=== PATIENT | male | born 1985 | race Hispanic/Latino ===

== ENCOUNTER → 2023-09-16 | Outpatient (CLI) | payer BC ==
[2023-09-16 10:02] LABS: BASOPHILS # (AUTO) 0.03 K/uL (0.00-0.20); BASOPHILS % (AUTO) 0.4 % (0.0-5.0); EOSINOPHILS # (AUTO) 0.15 K/uL (0.00-0.70); EOSINOPHILS % (AUTO) 1.9 % (0.0-8.0); HEMATOCRIT 44.9 % (42-54); IMMATURE GRANULOCYTE ABSOLUTE 0.05 K/uL (0-1); LYMPHOCYTES # (AUTO) 2.7 K/uL (1.0-4.8); LYMPHOCYTES % (AUTO) 33.5 % (21.0-51.0); MEAN CORPUSCULAR HEMOGLOBIN 29.3 pg (27.0-33.0); MEAN CORPUSCULAR HGB CONC 32.7 g/dL (32.0-36.0); MEAN CORPUSCULAR VOLUME 89.4 fL (79-99); MONOCYTES # (AUTO) 0.5 K/uL (0.1-1.0); MONOCYTES % (AUTO) 5.7 % (3.0-13.0); NEUTROPHILS # (AUTO) 4.6 K/uL (1.8-7.7); NEUTROPHILS % (AUTO) 57.9 % (40.0-77.0); PLATELET COUNT (AUTO) 288 K/uL (130-400); RED BLOOD CELL COUNT(AUTO) 5.02 MIL/uL (4.50-6.20); RED CELL DISTRIBUTION WIDTH 12.7 % (11.0-15.5)
[2023-09-16 10:11] LABS: HEMOGLOBIN A1C 5.3 % (4.0-6.0)
[2023-09-16 10:18] LABS: % IRON SATURATION 21.9 % (30-44)
[2023-09-16 10:42] LABS: ALBUMIN 3.8 g/dL (3.5-5.0); BILIRUBIN,TOTAL 0.4 mg/dL (0.2-1.0); MAGNESIUM 1.8 mg/dL (1.80-2.40); POTASSIUM 3.7 mmol/L (3.5-5.1); T4 (THYROXINE) 8.3 ug/dL (4.7-13.3); THYROID STIMULATING HORMONE 2.45 uIU/mL (0.36-3.74); TOTAL PROTEIN, SERUM 7.8 g/dL (6.0-8.3)
== END | disposition home or self-care (01) ==
LOC: LAB 09:24
PROVIDERS: ATTEND Surgery
DX: M19.91 Primary osteoarthritis, unspecified site (principal); G47.33 Obstructive sleep apnea (adult) (pediatric); I10 Essential (primary) hypertension; E78.00 Pure hypercholesterolemia, unspecified; K21.9 Gastro-esophageal reflux disease without esophagitis
CPT/HCPCS: 36415; 71045; 80053; 80061; 82306; 82607; 82746; 83036; 83540; 83550; 83735; 84207; 84425; 84436; 84443; 84446; 84481; 84590; 84630; 85025; 93005

== ENCOUNTER 2024-01-19 15:00 | Inpatient (IN) | payer BC, OTHER ==
[2024-01-17 14:08] VITALS: BP 164/97; PULSE 70; RESP 18; TEMP 97.2
[2024-01-17 14:19] LABS: BASOPHILS # (AUTO) 0.03 K/uL (0.00-0.20); BASOPHILS % (AUTO) 0.4 % (0.0-5.0); EOSINOPHILS # (AUTO) 0.09 K/uL (0.00-0.70); EOSINOPHILS % (AUTO) 1.1 % (0.0-8.0); HEMATOCRIT 44.1 % (42-54); IMMATURE GRANULOCYTE ABSOLUTE 0.03 K/uL (0-1); LYMPHOCYTES # (AUTO) 2.9 K/uL (1.0-4.8); LYMPHOCYTES % (AUTO) 35.9 % (21.0-51.0); MEAN CORPUSCULAR HEMOGLOBIN 28.8 pg (27.0-33.0); MEAN CORPUSCULAR HGB CONC 32.7 g/dL (32.0-36.0); MEAN CORPUSCULAR VOLUME 88.2 fL (79-99); MONOCYTES # (AUTO) 0.4 K/uL (0.1-1.0); MONOCYTES % (AUTO) 5.3 % (3.0-13.0); NEUTROPHILS # (AUTO) 4.6 K/uL (1.8-7.7); NEUTROPHILS % (AUTO) 56.9 % (40.0-77.0); PLATELET COUNT (AUTO) 306 K/uL (130-400); WHITE BLOOD COUNT (AUTO) 8.1 K/uL (4.8-10.8)
[2024-01-17 14:32] LABS: INR 1.02 (0.85-1.15)
[2024-01-17 14:34] LABS: PARTIAL THROMBOPLASTIN TIME 32.1 SEC (26.3-35.5)
[2024-01-17 14:37] LABS: ALBUMIN 4.1 g/dL (3.5-5.0); BILIRUBIN,TOTAL 0.4 mg/dL (0.2-1.0); POTASSIUM 3.8 mmol/L (3.5-5.1); TOTAL PROTEIN, SERUM 8.3 g/dL (6.0-8.3)
[~2024-01-19] VITALS: Ht 180.3 cm; Wt 138.4 kg
[~2024-01-19 15:00] MED LIST: PANT40TA54 PO
[2024-01-20] VITALS (18 sets, daily range): BP systolic 119–165; BP diastolic 75–93; PULSE 62–80; RESP 16–20; TEMP 97.1–98.2; O2SAT 96–97
[2024-01-20] MEDS: ceFAZolin SODIUM 2 GM VIAL ONE (12:41)
[2024-01-20] MEDS: metRONIDazole 500MG/100ML BAG 200 ML ONE (12:48)
[2024-01-20] MEDS: ceFAZolin SODIUM 2 GM VIAL IVPB SCH (12:49)
[2024-01-20] MEDS: LACTATED RINGERS 1000ML 1,000 ML IV ONE (12:49)
[2024-01-20] MEDS: metRONIDazole 500MG/100ML BAG 100 ML IVPB SCH (12:49)
[2024-01-20] MEDS ORDERED: LOSA25TA41 PO (13:43)
[2024-01-20] MEDS ORDERED: OMEP40CA21 PO (13:43)
[2024-01-20] MEDS ORDERED: ATOR10TA69 PO (13:43)
[2024-01-20] MEDS ORDERED: dexaMETHasone SOD PHOSPHATE 4 MG/ML 1ML VIAL ONE (15:13)
[2024-01-20] MEDS ORDERED: GLYCOPYRROLATE 0.2 MG/ML 5 ML VIAL ONE (15:13)
[2024-01-20] MEDS ORDERED: ondanSETRON 4MG INJ ONE (15:13)
[2024-01-20] MEDS ORDERED: LIDOCAINE HCL MPF 1% 5ML VIAL ONE (15:13)
[2024-01-20] MEDS ORDERED: NEOSTIGMINE METHYLSULFATE 1MG/ML IV ONE (15:13)
[2024-01-20] MEDS ORDERED: ketOROlac 30MG VIAL (30MG/ML) ONE ×2 (15:13→17:54)
[2024-01-20] MEDS ORDERED: proPOFol 10 MG/ML 20ML VIAL IV ONE (15:13)
[2024-01-20] MEDS ORDERED: rocuRONium bROMide 10MG/1ML 5ML VL ONE (15:14)
[2024-01-20] MEDS ORDERED: FENTanyl CITRate PF 50 MCG/1 ML 5ML AMP IV ONE (15:14)
[2024-01-20] MEDS ORDERED: MIDAZOLAM HCL 1 MG/ML 2ML VIAL ONE (15:14)
[2024-01-20] MEDS ORDERED: BUPIvacaine/PF 0.5% 30ML VIAL ONE (17:07)
[2024-01-20] MEDS: BUPIvacaine/PF 0.5% 30ML VIAL INJ ONE (17:17)
[2024-01-20] MEDS ORDERED: ondanSETRON 4MG INJ IVP PRN (17:30)
[2024-01-20] MEDS ORDERED: hydroMORPHone 1 MG INJ IVP PRN (17:30)
[2024-01-20] MEDS: ENOXAPARIN SODIUM 30 MG/0.3 ML SQ SCH (17:30)
[2024-01-20] MEDS: LACTATED RINGERS 1000ML 1,000 ML IV SCH (17:30)
[2024-01-20] MEDS ORDERED: PROCHLORPERAZINE 10MG/2ML INJ IV PRN (17:30)
[2024-01-20] MEDS: MEPERIDINE-PF 25 MG/ML SYG ONE ×2 (18:57→19:07)
[2024-01-20] MEDS: FAMOTIDINE 20MG VIAL IV SCH (20:40)
[2024-01-20] MEDS: ketOROlac 30MG VIAL (30MG/ML) IV PRN (20:43)
[2024-01-21] VITALS (10 sets, daily range): BP systolic 132–164; BP diastolic 73–99; PULSE 71–98; RESP 19–20; TEMP 97.7–98.5; O2SAT 99
[2024-01-21] MEDS: HYDROcod/acetaMINOPHEN 7.5/325 MG 15 ML UDCUP PO PRN (05:50)
== END 2024-01-21 14:30 | disposition home or self-care (01) | DRG 621 ==
LOC: DAHIP 01-20 11:48 → 3CH 01-20 20:07
PROVIDERS: ADMIT Surgery; ATTEND Surgery
PROC: 0DJ08ZZ Inspection of Upper Intestinal Tract, Via Natural or Artificial Opening Endoscopic (ICD-10-PCS; 2024-01-20)
PROC: 0DQU4ZZ Repair Omentum, Percutaneous Endoscopic Approach (ICD-10-PCS; 2024-01-20)
PROC: 8E0W4CZ Robotic Assisted Procedure of Trunk Region, Percutaneous Endoscopic Approach (ICD-10-PCS; principal; 2024-01-20 16:48)
PROC: 0DB64Z3 Excision of Stomach, Percutaneous Endoscopic Approach, Vertical (ICD-10-PCS; 2024-01-20 16:48)
DX: E66.01 Morbid (severe) obesity due to excess calories (principal); I10 Essential (primary) hypertension; E78.5 Hyperlipidemia, unspecified; Z68.41 Body mass index [BMI] 40.0-44.9, adult
CPT/HCPCS: 36415; 43235; 80053; 85025; 85610; 85730; 86850; 86900; 86901; G0378; J1100; J1650; J1885; J2175; J2250; J2405; J2704; J2710; J3010; J3490; J7030; J7120; A4215; A4221; A4222; A4223; A4663; A4930; A6260; J0665; J0690